=== PATIENT | female | born 1995 | race Caucasian/White ===

== ENCOUNTER 2020-01-17 08:00 | Outpatient (CLI) | payer OTHER | END 2020-01-17 23:59 | disposition home or self-care (01) | LOC: LAB.R 08:00 | PROVIDERS: ATTEND Physician Assistant | DX: Z76.89 Persons encountering health services in other specified circumstances (principal) | CPT/HCPCS: 81599 ==

== ENCOUNTER 2023-12-25 22:28 | Emergency (ER) | payer MEDICAID, OTHER ==
[2023-12-25 22:49] VITALS: O2SAT 100
[2023-12-26] MEDS: AMOX/CLAV 875 MG/125 MG TABLET PO STA (01:47)
[2023-12-26] MEDS: BACITRACIN ZINC OINT 1 PACKET TOP STA (01:47)
--- NOTE | 2023-12-26 01:54 | ED Physician Documentation ---
PD HPI SKIN - Stated complaint Stated Complaint: DOG BITE R HAND - Chief complaint Chief Complaint: Laceration - History obtained from History obtained from: Patient - Additional information Additional information: The patient comes to the emergency department chief complaint of dog bite to her right hand by her [place] Lamb. She states that they were playing and not the dog just got carried away. It is immunized and has not been acting strangely lately. She is up-to-date on tetanus. PD PAST MEDICAL HISTORY - Past Medical History Past Medical History: Yes Musculoskeletal: Fibromyalgia, Other - Past Surgical History Past Surgical History: Yes HEENT: Other - Present Medications Home Medications: Ambulatory Orders Medication Instructions Recorded Confirmed Amox/Clav 875/125 [Augmentin] 1 each PO Q12H #20 tablet 12/26/23 Duloxetine HCl [Cymbalta] 60 mg PO DAILY 12/26/23 12/26/23 Propranolol ER [Inderal LA] 60 mg PO DAILY 12/26/23 12/26/23 - Allergies Allergies/Adverse Reactions: Allergies Allergy/AdvReac Type Severity Reaction Status Date / Time No Known Drug Allergies Allergy Verified 12/25/23 22:31 - Social History Does the pt smoke?: No Smoking Status: Never smoker Does the pt drink ETOH?: No Does the pt have substance abuse?: No - Immunizations Immunizations are current?: Yes - POLST Patient has POLST: No PD ED PE NORMAL - Vitals Vital signs reviewed: Yes - General General: No acute distress, Well developed/nourished, Other (Alert and grossly oriented) - HEENT HEENT: Atraumatic, EOMI, Moist mucous membranes - Neck Neck: Supple, no meningeal sign - Cardiac Cardiac: Strong equal pulses - Respiratory Respiratory: No respiratory distress - Derm Derm: Normal color, Warm and dry, Other (To 5 mm length small laceration/puncture wounds to the dorsum of right hand. Several other more superficial abrasions are noted. No erythema or streaking. No drainage.) - Extremities Extremities: No deformity, Normal ROM s pain, No edema - Neuro Neuro: No motor deficit, No sensory deficit, Other (Alert, grossly intact) - Psych Psych: Normal mood, Normal affect Results - Vitals Vitals: Oxygen O2 Source Room air PD Medical Decision Making - ED course Complexity details: considered differential, d/w patient ED course: I discussed with the patient that because her wounds are small but do appear to be punctured more deeply, and given that the wounds are in her hands, I do feel he should be treated with antibiotics since they are bites. Patient was given a dose of Augmentin. She was hoping for some degree of closure of the wounds, which gapes slightly. I discussed with her that I could apply a Steri-Strip since this is still breathable. Steri-Strips were applied to each of the 2 puncture wound/lacerations. We have discussed signs of infection which should prompt immediate return to the emergency department. I have sent a prescription in for the remainder of the patient's antibiotics. Departure - Departure Disposition: Home, Self Care Clinical Impression: Dog bite Qualifiers: Encounter type: initial encounter Qualified Code(s): W54.0XXA - Bitten by dog, initial encounter Condition: Stable Instructions: ED Bite Animal General Prescriptions: Amox/Clav 875/125 [Augmentin] 1 each PO Q12H #20 tablet Comments: Your 2 larger wounds have been closed with Steri-Strips. You been started on antibiotics and should pick the remainder of your prescription up at [facility] in [place] tomorrow. If you develop any redness or swelling spreading progressively away from your wounds, or red streak going up your arm, please have the wounds rechecked immediately. Otherwise, you may take the Steri-Strips off whenever you wish. Forms: PCP List Discharge Date/Time: 12/26/23 02:04
[2023-12-26 02:10] VITALS: BP 114/71
== END 2023-12-26 02:04 | disposition home or self-care (01) ==
LOC: ED 22:28
DX: S61.411A Laceration without foreign body of right hand, initial encounter (principal); T14.8XXA Other injury of unspecified body region, initial encounter; S61.431A Puncture wound without foreign body of right hand, initial encounter; W54.0XXA Bitten by dog, initial encounter; Y93.K9 Activity, other involving animal care
CPT/HCPCS: 99283; A9270